=== PATIENT | female | born 1965 | race African-American/Black ===

== ENCOUNTER 2024-08-09 14:58 | Inpatient (IN) | payer OTHER ==
[2024-08-09] MEDS: ALBUTEROL SO4 2.5/IPRATROPIUM 0.5 INH SOL 3 ML VIAL.NEB. NEB ONE (15:17)
[2024-08-09 15:19] LABS: VENOUS BASE EXCESS -5.1 mmol/L (-2-2); VENOUS O2 SATURATION 66.3 % (70-80); VENOUS PCO2 69.6 mmHg (38-52)
[2024-08-09] MEDS: methylPREDNISolone NA SUCC 125 MG/2 ML VIAL IVPUSH ONE (15:19)
[2024-08-09 15:20] LABS: BASO % 0.7 % (0-2.0); HEMATOCRIT 41.6 % (32.4-45.2); HEMOGLOBIN 13.8 GM/dL (10.7-15.3); LYMPH % 17.4 % (8-40); MCH 31.9 pg (25.7-33.7); MCHC 33.1 g/dl (32.0-36.0); MEAN CELL VOLUME 96.1 fl (80-96); MEAN PLT VOLUME 10.3 fl (7.5-11.1); MONO % 5.8 % (3.8-10.2); NEUT % 76.1 % (42.8-82.8); PLATELET COUNT 259 10^3/uL (134-434); RBC 4.33 M/mm3 (3.60-5.2); RDW 13.6 % (11.6-15.6); WHITE BLOOD COUNT 12.8 K/mm3 (4.0-10.0)
[2024-08-09 15:24] LABS: VENOUS PH 7.173 (7.310-7.410)
[2024-08-09 16:04] LABS: POTASSIUM 5.1 mmol/L (3.5-5.1)
[2024-08-09 16:08] LABS: ALBUMIN 4.2 g/dl (3.4-5.0)
[2024-08-09 16:10] LABS: CREATININE 0.8 mg/dL (0.55-1.3)
[2024-08-09 16:11] LABS: BILIRUBIN,TOTAL 1.1 mg/dL (0.2-1); TOT PROT 8.5 g/dl (6.4-8.2)
[2024-08-09] MEDS ORDERED: AZITHROMYCIN IVPB 500 MG/250 ML BAG IVPB ONE (16:20)
[2024-08-09] MEDS: AZITHROMYCIN IVPB 500 MG in DEXTROSE 5%-WATER - 250 ML IVPB ONE (16:26)
[2024-08-09] MEDS ORDERED: ALBUTEROL SO4 2.5/IPRATROPIUM 0.5 INH SOL 3 ML VIAL.NEB. NEB PRN (20:22)
[2024-08-09] MEDS: guaiFENesin/D-METHORPHAN HB 10 ML UNIT-DOSE CUPS PO PRN (20:54)
[2024-08-09] MEDS: methylPREDNISolone NA SUCC 40 MG/1 ML VIAL IVPUSH SCH (20:54)
[2024-08-09] MEDS: amLODIPine BESYLATE 10 MG TABLET (FP) PO ONE (22:25)
[2024-08-10 08:14] LABS: EOS % 0.1 % (0-4.5); HEMATOCRIT 36.6 % (32.4-45.2); HEMOGLOBIN 12.6 GM/dL (10.7-15.3); MCH 32.2 pg (25.7-33.7); MCHC 34.3 g/dl (32.0-36.0); MEAN CELL VOLUME 93.9 fl (80-96); MEAN PLT VOLUME 10.1 fl (7.5-11.1); MONO % 2.7 % (3.8-10.2); NEUT % 90.2 % (42.8-82.8); PLATELET COUNT 200 10^3/uL (134-434); RDW 13.3 % (11.6-15.6); WHITE BLOOD COUNT 7.3 K/mm3 (4.0-10.0)
[2024-08-10 08:37] LABS: POTASSIUM 4.6 mmol/L (3.5-5.1)
[2024-08-10 08:42] LABS: ALBUMIN 3.7 g/dl (3.4-5.0); BLOOD UREA NITROGEN 20.4 mg/dL (7-18); CALCIUM 8.9 mg/dL (8.5-10.1)
[2024-08-10 08:45] LABS: CREATININE 0.7 mg/dL (0.55-1.3)
[2024-08-10 08:47] LABS: BILIRUBIN,TOTAL 0.4 mg/dL (0.2-1); TOT PROT 7.4 g/dl (6.4-8.2)
[2024-08-10] MEDS: amLODIPine BESYLATE 10 MG TABLET (FP) PO SCH (10:04)
[2024-08-10] MEDS: AZITHROMYCIN IVPB 500 MG/250 ML BAG IVPB SCH (10:05)
[2024-08-10] MEDS: ACETAMINOPHEN 325 MG TABLET (FP) PO ONE (10:20)
[2024-08-10] MEDS: ALBUTEROL SO4 2.5/IPRATROPIUM 0.5 INH SOL 3 ML VIAL.NEB. NEB SCH (11:57)
[2024-08-10] MEDS: BUDESONIDE/FORMETEROL FUMARATE 160/4.5 mcg INHALER IH SCH (12:18)
[2024-08-10] MEDS: ACETAMINOPHEN 500 MG TABLET (FP) PO ONE (20:47)
[2024-08-11 08:13] LABS: N-TERMINAL BNP 1020.5 pg/ml (5-125)
[2024-08-11] MEDS: LISINOPRIL 5 MG TABLET PO SCH (09:31)
[2024-08-11] MEDS: ACETAMINOPHEN 325 MG TABLET (FP) PO PRN (17:55)
[2024-08-12] MEDS: TIOTROPIUM BROMIDE 2.5 MCG (SPIRIVA) RESPIMAT INHALER IH SCH (17:23)
[2024-08-13] MEDS: ALBUTEROL SO4 0.083% IH SOL 2.5 MG/3 ML VIAL.NEB. NEB PRN (07:25)
[2024-08-13 08:49] LABS: BASO % 0.1 % (0-2.0); HEMOGLOBIN 13.4 GM/dL (10.7-15.3); LYMPH % 8.7 % (8-40); MCH 31.7 pg (25.7-33.7); MCHC 33.5 g/dl (32.0-36.0); MEAN CELL VOLUME 94.6 fl (80-96); MONO % 3.5 % (3.8-10.2); NEUT % 87.7 % (42.8-82.8); PLATELET COUNT 277 10^3/uL (134-434); RBC 4.23 M/mm3 (3.60-5.2); RDW 13.5 % (11.6-15.6); WHITE BLOOD COUNT 7.9 K/mm3 (4.0-10.0)
[2024-08-13 09:19] LABS: POTASSIUM 4.7 mmol/L (3.5-5.1)
[2024-08-13 09:26] LABS: ALBUMIN 3.7 g/dl (3.4-5.0); BLOOD UREA NITROGEN 16.6 mg/dL (7-18); CALCIUM 9.8 mg/dL (8.5-10.1)
[2024-08-13 09:29] LABS: CREATININE 0.6 mg/dL (0.55-1.3)
[2024-08-13 09:31] LABS: BILIRUBIN,TOTAL 0.3 mg/dL (0.2-1); TOT PROT 7.5 g/dl (6.4-8.2)
[2024-08-13] MEDS: methylPREDNISolone NA SUCC 40 MG/1 ML VIAL IVPUSH SCH (21:53)
[2024-08-14] MEDS: SODIUM CHLORIDE NASAL SPRAY 44 ML BOTTLE NS PRN (21:40)
[2024-08-15 07:29] LABS: HEMATOCRIT 36.2 % (32.4-45.2); HEMOGLOBIN 12.1 GM/dL (10.7-15.3); LYMPH % 8.1 % (8-40); MCH 31.5 pg (25.7-33.7); MCHC 33.4 g/dl (32.0-36.0); MEAN CELL VOLUME 94.4 fl (80-96); MEAN PLT VOLUME 9.7 fl (7.5-11.1); NEUT % 86.9 % (42.8-82.8); PLATELET COUNT 275 10^3/uL (134-434); RBC 3.83 M/mm3 (3.60-5.2); WHITE BLOOD COUNT 7.6 K/mm3 (4.0-10.0)
[2024-08-15 07:45] LABS: POTASSIUM 4.6 mmol/L (3.5-5.1)
[2024-08-15 07:48] LABS: CALCIUM 9.3 mg/dL (8.5-10.1)
[2024-08-15 07:49] LABS: ALBUMIN 3.1 g/dl (3.4-5.0); BLOOD UREA NITROGEN 16.4 mg/dL (7-18)
[2024-08-15 07:52] LABS: CREATININE 0.5 mg/dL (0.55-1.3)
[2024-08-15 07:54] LABS: BILIRUBIN,TOTAL 0.2 mg/dL (0.2-1); TOT PROT 6.2 g/dl (6.4-8.2)
[2024-08-15] MEDS: AZITHROMYCIN 250 MG TABLET PO SCH (09:13)
[2024-08-15] MEDS: LISINOPRIL 10 MG TABLET PO SCH (14:30)
[2024-08-16] MEDS: LISINOPRIL 10 MG TABLET PO SCH (09:46)
[2024-08-18] MEDS: BENZOCAINE/MENTH/CETYLPYRD CL 1 EACH LOZENGE MM PRN (20:04)
[2024-08-19] MEDS ORDERED: guaiFENesin/D-METHORPHAN HB 10 ML UNIT-DOSE CUPS PO PRN (15:23)
[2024-08-19] MEDS: BUDESONIDE/FORMETEROL FUMARATE 160/4.5 mcg INHALER IH SCH (21:43)
[2024-08-19] MEDS: methylPREDNISolone NA SUCC 40 MG/1 ML VIAL IVPUSH SCH (21:44)
[2024-08-19] MEDS: ACETAMINOPHEN 325 MG TABLET (FP) PO PRN (21:45)
[2024-08-20 08:37] LABS: BASO % 0.1 % (0-2.0); HEMOGLOBIN 11.3 GM/dL (10.7-15.3); LYMPH % 6.2 % (8-40); MCH 31.1 pg (25.7-33.7); MCHC 33.3 g/dl (32.0-36.0); MEAN CELL VOLUME 93.4 fl (80-96); MEAN PLT VOLUME 9.3 fl (7.5-11.1); MONO % 2.8 % (3.8-10.2); NEUT % 90.9 % (42.8-82.8); PLATELET COUNT 360 10^3/uL (134-434); RBC 3.64 M/mm3 (3.60-5.2); RDW 13.1 % (11.6-15.6); WHITE BLOOD COUNT 14.1 K/mm3 (4.0-10.0)
[2024-08-20 08:41] LABS: POTASSIUM 4.6 mmol/L (3.5-5.1)
[2024-08-20 08:52] LABS: CALCIUM 9.4 mg/dL (8.5-10.1)
[2024-08-20 08:53] LABS: BLOOD UREA NITROGEN 19.8 mg/dL (7-18)
[2024-08-20 08:55] LABS: CREATININE 0.5 mg/dL (0.55-1.3)
[2024-08-20 08:56] LABS: BILIRUBIN,TOTAL 0.3 mg/dL (0.2-1); TOT PROT 5.9 g/dl (6.4-8.2)
[2024-08-20] MEDS: amLODIPine BESYLATE 10 MG TABLET (FP) PO SCH (10:47)
[2024-08-20] MEDS: LISINOPRIL 20 MG TABLET PO SCH (10:47)
[2024-08-20] MEDS: TIOTROPIUM BROMIDE 2.5 MCG (SPIRIVA) RESPIMAT INHALER IH SCH (10:48)
[2024-08-22] MEDS: LISINOPRIL 20 MG TABLET PO SCH (09:16)
[2024-08-23 13:11] VITALS: BMI 16.9
[2024-08-25] MEDS: predniSONE 20 MG TABLET (UD) PO SCH (10:07)
[2024-08-26 08:54] VITALS: BP 155/72; PULSE 94; RESP 19; TEMP 97.5
[2024-08-26] MEDS: SODIUM CHLORIDE NASAL SPRAY 44 ML BOTTLE NS PRN (09:04)
== END 2024-08-26 11:41 | disposition home or self-care (01) | DRG 133 ==
LOC: JER 14:58 → JERBED 16:34 → J4W 17:54 → J7W 08-19 12:22
PROVIDERS: ADMIT Internal Medicine; ATTEND Internal Medicine
DX: J96.22 Acute and chronic respiratory failure with hypercapnia (principal); E43 Unspecified severe protein-calorie malnutrition; J44.1 Chronic obstructive pulmonary disease with (acute) exacerbation; J45.901 Unspecified asthma with (acute) exacerbation; R64 Cachexia; J96.21 Acute and chronic respiratory failure with hypoxia; I16.0 Hypertensive urgency; I10 Essential (primary) hypertension; Z68.1 Body mass index [BMI] 19.9 or less, adult; F17.210 Nicotine dependence, cigarettes, uncomplicated
CPT/HCPCS: 0241U-QW; 36415; 71045-TC-FY; 80053; 80061; 82803; 83036; 83735; 83880; 84439; 84443; 84484; 85025; 93005; 93010; 93306-TC; 94640; 94660; 94761; 99291